=== PATIENT | female | born 2000 | race Caucasian/White ===

== ENCOUNTER 2019-02-08 15:56 | Emergency (ER) | payer SELFPAY ==
[2019-02-08 16:13] VITALS: BP 127/66
--- NOTE | 2019-02-08 16:54 | UC ---
Hand/Wrist HPI - HPI Summary HPI Summary: 18-year-old female presents with complaints of left dorsal forearm pain after being struck with a field hockey stick during a game about 2 hours prior to arrival. Complains of bruising and swelling at the site of the injury. Right- hand dominant. Denies numbness or tingling. - History Of Current Complaint Chief Complaint: UCUpperExtremity Stated Complaint: WRIST INJURY Time Seen by Provider: 02/08/19 16:10 Hx Obtained From: Patient Hx Last Menstrual Period: 1 week ago Pain Intensity: 4 - Allergies/Home Medications Allergies/Adverse Reactions: Allergies Allergy/AdvReac Type Severity Reaction Status Date / Time No Known Allergies Allergy Verified 02/08/19 16:11 Home Medications: Home Medications NK [No Home Medications Reported] 02/08/19 [History Confirmed 02/08/19] PMH/Surg Hx/FS Hx/Imm Hx Previously Healthy: Yes - Denies significant PMH - Surgical History Surgical History: None - Family History Known Family History: Positive: Non-Contributory - Social History Occupation: Student Lives: Dormitory/Roommates Alcohol Use: None Substance Use Type: None Smoking Status (MU): Never Smoked Tobacco Review of Systems All Other Systems Reviewed And Are Negative: Yes Constitutional: Positive: Negative Skin: Positive: Bruising Respiratory: Positive: Negative Cardiovascular: Positive: Negative Gastrointestinal: Positive: Negative Genitourinary: Positive: Negative Motor: Negative: Weakness Neurovascular: Negative: Decreased Sensation Musculoskeletal: Positive: Other: - See HPI Neurological: Positive: Negative Is Patient Immunocompromised?: No Physical Exam - Summary Physical Exam Summary: GENERAL APPEARANCE: Well developed, well nourished, alert and cooperative, and appears to be in no acute distress. CARDIAC: Normal S1 and S2. No S3, S4 or murmurs. Rhythm is regular. There is no peripheral edema, cyanosis or pallor. Extremities are warm and well perfused. Capillary refill is less than 2 seconds. Peripheral pulses intact. LUNGS: Clear to auscultation without rales, rhonchi, wheezing or diminished breath sounds. ABDOMEN: Positive bowel sounds. Soft, nondistended, nontender. No guarding or rebound. No masses or hepatosplenomegally. MUSKULOSKELETAL: Normal muscular development. Normal gait. EXTREMITIES: Tenderness with mild ecchymosis and edema to the posterior distal left forearm without gross deformity. Full painless ROM to wrist and elbow. Circulation and sensation intact. SKIN: Skin normal color, texture and turgor. Triage Information Reviewed: Yes Vital Signs: Initial Vital Signs Temp 98.8 F 02/08/19 16:11 Pulse 74 02/08/19 16:11 Resp 18 02/08/19 16:11 BP 127/66 02/08/19 16:11 Pulse Ox 97 02/08/19 16:11 Vital Signs Reviewed: Yes Images Front/Back of Body, Lg ([place]): 1 - Ecchymosis and mild edema Diagnostics - Radiology No standard instances Radiology Interpretation Completed By: Radiologist Summary of Radiographic Findings: No evidence of fracture Hand/Wrist Course/Dx - Course Course Of Treatment: 18-year-old female presents with complaints of left dorsal forearm pain after being struck with a field hockey stick during a game about 2 hours prior to arrival. Complains of bruising and swelling at the site of the injury. Right- hand dominant. Denies numbness or tingling. Afebrile. VSS. Patient had tenderness with mild ecchymosis and edema to the posterior distal left forearm without gross deformity. Full painless ROM to wrist and elbow. Circulation and sensation intact. X-ray showed no evidence of fracture. Recommend conservative treatment for a forearm contusion including OTC analgesics and RICE. Patient is visiting area from [place]. Returning home tomorrow. She is to follow up with her PCP in 7 days if no improvement in symptoms. Anticipatory guidance and warning symptoms reviewed with patient. Verbalizes understanding and agrees with POC. - Differential Dx/Diagnosis Differential Diagnosis/HQI/PQRI: Contusion, Dislocation, Fracture Provider Diagnosis: Contusion of left forearm Discharge ED - Sign-Out/Discharge Documenting (check all that apply): Patient Departure All imaging exams completed and their final reports reviewed: Yes - Discharge Plan Condition: Stable Disposition: HOME Patient Education Materials: Contusion in Adults (ED) Referrals: No Primary Care Phys,NOPCP [Primary Care Provider] - Additional Instructions: The x-ray performed in the clinic today showed no evidence of a fracture. I suspect that you have a contusion of the forearm. Rest the arm as much as possible. Apply ice to the affected area for 15-20 minutes at least 4 times a day to help with the pain and swelling. Elevate the arm to help reduce swelling. Take acetaminophen (Tylenol) or ibuprofen (Advil, Motrin) according to directions as needed for pain. Follow up with your primary care provider in 7 days if symptoms do not improve. Seek immediate medical attention if you have severe pain not managed with pain medication, develop numbness or tingling in the hand or fingers, or have any worsening of symptoms. - Billing Disposition and Condition Condition: STABLE Disposition: Home
== END 2019-02-08 17:00 | disposition home or self-care (01) ==
LOC: UCEAST 15:56
DX: S50.12XA Contusion of left forearm, initial encounter (principal); W22.8XXA Striking against or struck by other objects, initial encounter; Y93.65 Activity, lacrosse and field hockey; Y92.410 Unspecified street and highway as the place of occurrence of the external cause; Y99.8 Other external cause status
CPT/HCPCS: 99201; G0463